=== PATIENT | female | born 1980 | race African-American/Black ===

== ENCOUNTER 2019-11-06 19:23 | Emergency (ER) | payer OTHER ==
[~2019-11-06] VITALS: Ht 160 cm; Wt 56.7 kg
--- NOTE | 2019-11-06 19:34 | PHYS DOC ---
Adult General Chief Complaint Chief Complaint: FACE PROBLEM.. " .. I had a root canal on .. and they were to give me some antibiotics.. but I didnt get them.. now... my face is swollen..." HPI HPI Patient is a 39 year old female who presents with above hx and complaints right facial edema and swelling and pain after a root canal on . Patient was to be on Augmentin for infection however prescription was never issued. Patient relates sensitivities will canal her entire side of right face has become swollen, red and increased pain right mandible. Patient was issued a prescription for Augmentin. Patient does have a follow-up appointment on Thursday this coming week Dr. Nassar. Patient denies any history of diabetes. Patient has history of immunosuppression. Denies specific ill contacts. Patient has no trismus. No edema to the soft tissue under tongue and neck. Patient does have obvious swelling over the entire right side of face. There is some adenopathy at Rt. angle of mandible. Patient currently rating her pain as 9 tyo10 out of 10. Review of Systems Review of Systems Constitutional: Subjective symptoms of fever Eyes: Denies change in visual acuity, redness, or eye pain [] HENT: Denies nasal congestion or sore throat [. Patient has]right face tenderness and swelling. Dental pain. Respiratory: Denies cough or shortness of breath [] Cardiovascular: No additional information not addressed in HPI [] GI: Denies abdominal pain, nausea, vomiting, bloody stools or diarrhea [] : Denies dysuria or hematuria [] Musculoskeletal: Denies back pain or joint pain [] Integument: Denies rash or skin lesions [] Neurologic: Denies headache, focal weakness or sensory changes [] Endocrine: Denies polyuria or polydipsia [] All other systems were reviewed and found to be within normal limits, except as documented in this note. Family History Family History Noncontributory Current Medications Current Medications See nursing for home meds Allergies Allergies No known drug allergies Physical Exam Physical Exam Constitutional: in acute distress, non-toxic appearance. [] HENT: Normocephalic, atraumatic, bilateral external ears normal, oropharynx moist, no oral exudates, nose normal. Entire right facial edema and erythema. Recent dental work findings on molars right. Adenopathy angle of mandible right Eyes: PERRLA, EOMI, conjunctiva normal, no discharge. [] Neck: Normal range of motion, no tenderness, supple, no stridor. [] Cardiovascular:Heart rate regular rhythm, no murmur [] Lungs & Thorax: Bilateral breath sounds equal at apex auscultation [] Abdomen: Bowel sounds normal, soft, no tenderness, no masses, no pulsatile masses. [] Skin: Warm, dry, no erythema, no rash. [] Back: No tenderness, no CVA tenderness. [] Extremities: No tenderness, no cyanosis, no clubbing, ROM intact, no edema. [] Neurologic: Alert and oriented X 3, normal motor function, normal sensory function, no focal deficits noted. [] Psychologic: Affect anxious, judgement normal, mood tearful. EKG EKG [] Radiology/Procedures Radiology/Procedures [] Course & Med Decision Making Course & Med Decision Making Pertinent Labs and Imaging studies reviewed. (See chart for details) Keep follow up with Dentist. Patient continue current antibiotics Augmentin and Add Flagyl 500 three times a day for infection. Tylenol and Ibuprofen for pain. Ice packs. Marked pain take Vicoprofen- with narcotic precaution. . Impression: 1. Dental Pain 2. Facial Cellulitis / Abscess [] Dragon Disclaimer Dragon Disclaimer This electronic medical record was generated, in whole or in part, using a voice recognition dictation system. Departure Departure: Disposition: 01 HOME/RESIDENCE PRIOR TO ADM Condition: STABLE Referrals: PCP,NO (PCP) Scripts Ondansetron Hcl (ZOFRAN) 8 Mg Tablet 8 MG PO QIDPRN PRN for acute vomiting, #30 BOTTLE Prov: ALEXIS SANTANA MD 11/06/19 Metronidazole (FLAGYL) 500 Mg Tablet 500 MG PO TID for cellulitis and abscess for 10 Days, #30 TAB Prov: ALEXIS SANTANA MD 11/06/19 Hydrocodone/Ibuprofen (HYDROCODONE-IBUPROFEN 7.5-200 ) 1 Each Tablet 1 TAB PO PRN Q6HRS PRN for PAIN, #30 TAB 0 Refills Prov: ALEXIS SANTANA MD 11/06/19 Mey Disclaimer This chart was dictated in whole or in part using Voice Recognition software in a busy, high-work load, and often noisy Emergency Department environment. It may contain unintended and wholly unrecognized errors or omissions. ALEXIS SANTANA MD Nov 06, 2019 19:34
[2019-11-06] MEDS ORDERED: METR500T PO (19:57)
[2019-11-06] MEDS ORDERED: HYDR-1179 PO (19:57)
[2019-11-06] MEDS ORDERED: KETOROLAC 60 MG/2 ML VIAL. IM ONE (20:00)
[2019-11-06] MEDS ORDERED: metroNIDAZOLE 500 MG TABLET PO ONE (20:00)
[2019-11-06] MEDS ORDERED: cefTRIAXone SODIUM 1 GM VIAL ONE (20:04)
[2019-11-06] MEDS ORDERED: IV NORMAL SALINE 50ML 50 ML ONE (20:04)
[2019-11-06] MEDS ORDERED: ONDANSETRON PF 4 MG/2 ML VIAL. ONE (20:12)
[2019-11-06] MEDS ORDERED: ONDANSETRON PF 4 MG/2 ML VIAL. IVP ONE (20:30)
[2019-11-06 20:45] VITALS: BP 113/71
[2019-11-06] MEDS ORDERED: ONDA8TAB9 PO (21:06)
== END 2019-11-06 20:55 | disposition home or self-care (01) ==
LOC: ER 19:23
DX: G89.18 Other acute postprocedural pain (principal); K08.89 Other specified disorders of teeth and supporting structures; Z98.818 Other dental procedure status
CPT/HCPCS: 96365; 96372; 96375; 99284; J0696; J1885; J2405; 99285-25